=== PATIENT | female | born 1970 | race Two or more races ===

== ENCOUNTER 2021-08-24 07:42 | Outpatient (CLI) | payer OTHER | END 2021-08-24 07:44 | disposition home or self-care (01) | LOC: SONOGRAMA 07:42 | PROVIDERS: ATTEND Pathology Anatomic Pathology & Clinical Pathology | DX: E04.1 Nontoxic single thyroid nodule (principal) ==

== ENCOUNTER 2021-10-05 07:16 | Day surgery (SDC) | payer OTHER ==
[~2021-10-05 07:16] MED LIST: LYRICA PO; [UNRECOGNIZED DRUG - OTHER]
[2021-10-05] MEDS ORDERED: IBU600 MG PO (13:18)
[2021-10-05] MEDS ORDERED: PERCOCET 5-3251 EACH PO (13:18)
== END 2021-10-05 15:25 | disposition home or self-care (01) ==
LOC: CIR.AMB 07:16
PROVIDERS: ATTEND Obstetrics & Gynecology Gynecology
DX: D27.1 Benign neoplasm of left ovary (principal); Z20.822 Contact with and (suspected) exposure to COVID-19; Z88.8 Allergy status to other drugs, medicaments and biological substances; F32.A Depression, unspecified